=== PATIENT | male | born 2000 | race American Indian/Alaskan Native ===

== ENCOUNTER 2020-10-05 14:34 | Emergency (ER) | payer OTHER ==
[2020-10-05 15:00] VITALS: BP 137/83
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
[2020-10-05] MEDS ORDERED: TETANUS,DIPH,PERTUSS(ACELL) VACCINE 0.5 ML SYRINGE IM ONE (16:46)
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
== END 2020-10-05 17:28 | disposition home or self-care (01) ==
LOC: ED 14:34
DX: S50.811A Abrasion of right forearm, initial encounter (principal); R07.81 Pleurodynia; M54.2 Cervicalgia; Z79.899 Other long term (current) drug therapy; V49.49XA Driver injured in collision with other motor vehicles in traffic accident, initial encounter; Y92.410 Unspecified street and highway as the place of occurrence of the external cause; Y93.89 Activity, other specified; Y99.8 Other external cause status
CPT/HCPCS: 72040; 99283